=== PATIENT | male | born 1980 | race Caucasian/White ===

== ENCOUNTER 2024-09-12 20:47 | Emergency (ER) | payer BC, SELFPAY ==
[2024-09-12 21:25] LABS: #Basophils 0.05 10x3/uL (0.0-0.2); #Eosinophils 0.07 10x3/uL (0.0-0.5); #Monocytes 0.36 10x3/uL (0.0-1.1); #Neutrophils 5.98 10x3/uL (1.5-8.4); %Basophils 0.6 % (0.0-2.0); %Eosinophils 0.9 % (0.0-6.0); %Lymphocytes 19.8 % (18.0-47.0); %Monocytes 4.4 % (0.0-10.0); %Neutrophils 73.8 % (40.0-75.0); Hematocrit 41.6 % (38.8-50.0); Hemoglobin 14.5 g/dL (13.5-17.5); Mean Corpuscular HGB CONC 34.9 g/dL (32.0-36.0); Mean Corpuscular Hemoglobin 32.3 pg (27.0-33.0); Mean Corpuscular Volume 92.7 fL (81.2-95.1); Mean Platelet Volume 9.8 fL (7.4-10.4); Platelet Count 234 10x3/uL (150-450); RBC Distribution Width 13.8 % (11.5-14.5); Red Blood Cell (RBC) Count 4.49 10x6/uL (4.32-5.72); White Blood Cell (WBC) Count 8.1 10x3/uL (3.5-10.5)
[2024-09-12 21:39] LABS: ALT (SGPT) 47 U/L (8-55); AST (SGOT) 38 U/L (5-34); Acetaminophen Less than 10 mcg/mL (Less than 10); Albumin 4.5 g/dL (3.5-5.0); Alcohol 20.2 mg/dL (Less than 10); Alkaline Phosphatase 59 U/L (40-110); Anion Gap 20 mmol/L (10-20); BUN (Urea Nitrogen) 18 mg/dL (8.9-20.6); Bilirubin, Total 0.5 mg/dL (0.2-1.2); Calc. Creatinine Clearance 0 mL/min (70-130); Calcium 10.1 mg/dL (7.8-10.44); Carbon Dioxide 25 mmol/L (22-29); Chloride 97 mmol/L (98-107); Estimated GFR 61; Globulin 3.3 g/dL (2.4-3.5); Glucose 131 mg/dL (70-105); Potassium 3.9 mmol/L (3.5-5.1); Protein, Total 7.8 g/dL (6.0-8.3); Salicylate Less than 8.0 mg/dL (Less than 8.0); Sodium 138 mmol/L (136-145)
[2024-09-12] MEDS ORDERED: Ondansetron PF 4 MG/2 ML Vial ONE (22:06)
[2024-09-12] MEDS ORDERED: Famotidine/PF 20 mg/2ml Vial ONE (22:06)
[2024-09-13 00:20] LABS: Amphetamine Not Detected (NotDetected); Barbiturates Screen Not Detected (NotDetected); Benzodiazepine Screen Detected (NotDetected); Cocaine Metabolite Screen Not Detected (NotDetected); Methadone Not Detected (NotDetected); Methamphetamine Not Detected (NotDetected); Opiate Screen Not Detected (NotDetected); Oxycodone Screen Not Detected (NotDetected); Phencyclidine (PCP) Not Detected (NotDetected); THC/Cannabinoid Screen Detected (NotDetected); Tricyclic Screen Not Detected (NotDetected)
[2024-09-13] MEDS ORDERED: chlordiazePOXIDE HCl 25 MG CAP ONE (07:18)
[2024-09-13] MEDS ORDERED: Amlodipine 5 MG TAB ONE (07:18)
[2024-09-13] MEDS ORDERED: Losartan 50 MG TAB PO SCH (07:30)
[2024-09-13] MEDS ORDERED: Hydrochlorothiazide 25 MG TAB PO SCH (07:45)
[2024-09-13] MEDS ORDERED: Sertraline 100 MG TAB PO SCH (07:45)
== END 2024-09-13 11:13 ==
LOC: CSHERS 20:47
DX: R45.851 Suicidal ideations (principal); I10 Essential (primary) hypertension; I48.91 Unspecified atrial fibrillation; Z79.82 Long term (current) use of aspirin
CPT/HCPCS: 36415; 80053; 80306; 80307; 85025; 93005; 96374; 96375; J2405; J3490